=== PATIENT | male | born 1970 ===

== ENCOUNTER 2021-10-15 09:11 | Emergency (ER) | payer SELFPAY ==
[2021-10-15] MEDS ORDERED: ETOMIDATE 20 MG/10 ML INJ IV ONE (09:16)
[2021-10-15] MEDS ORDERED: SUCCINYLCHOLINE CHLORIDE 200 MG/10 ML INJ MDV ONE (09:17)
[2021-10-15] MEDS ORDERED: MIDAZOLAM IV ONE (09:21)
[2021-10-15] MEDS ORDERED: SODIUM CHLORIDE IV ONE (09:21)
[2021-10-15] MEDS ORDERED: LORazepam 2 MG/ML VIAL ONE ×2 (09:21→09:22)
--- NOTE | 2021-10-15 10:13 | Emergency Department Report ---
HPI - General Time Seen by Provider: 10/15/21 10:04 - [facility] HPI: Room 20 Patient is a 51-year-old male presenting with a chief complaint of chest pain. Per EMS the patient awakened this morning with substernal chest heaviness and shortness of breath. Patient became diaphoretic and EMS was called. Prehospital EKG concerning for STEMI was sent to the ED by EMS as a code STEMI was activated. This EKG was sent to the senior recruitment consultant Dr Felton prior to the patient's arrival. Colon Therapist requested a repeat EKG upon patient's arrival. The patient presented in extremis with chest pain and diaphoresis and would not allow repeat EKG to be performed immediately. Patient was beginning to decompensate subsequently the patient was intubated by myself using RSI. The patient arrested shortly after intubation and ACLS protocols were initiated. Colon Therapist was updated on the patient's condition. There was brief ROSC and the senior recruitment consultant was notified. Colon Therapist requested a chest x-ray or CT scan prior to going to Art Coordinator to rule out other causes for patient's presentation, however the patient soon arrested again. ACLS protocols were continued. Colon Therapist arrives at bedside during compressions and performed a bedside ultrasound which showed asystole. ACLS protocols were continued however there was no return of spontaneous circulation ED Past Medical Hx - Past Medical History Hx Asthma: Yes - Surgical History Past Surgical History?: No - Family History Family history: no significant - Social History Smoking Status: Unknown if ever smoked ED Review of Systems ROS: Stated complaint: CHEST PAIN Other details as noted in HPI Constitutional: diaphoresis Respiratory: shortness of breath Cardiovascular: chest pain Physical Exam - Physical Exam Physical Exam: GENERAL: The patient is well-developed well-nourished male appearing diaphoretic and anxious complaint of chest. [] HEENT: Normocephalic. Atraumatic. Patient has moist mucous membranes. NECK: Supple. Trachea midline CHEST/LUNGS: Clear to auscultation. There is increased work of breathing HEART/CARDIOVASCULAR: Regular. There is no tachycardia. There is no gallop rub or murmur. ABDOMEN: Abdomen is soft, nontender. Patient has normal bowel sounds. There is no abdominal distention. SKIN: There is no rash. There is no edema. There is diaphoresis. NEURO: The patient is awake, alert, and oriented. The patient is anxious. GCS 15. The patient has normal speech MUSCULOSKELETAL: There is no evidence of acute injury. ED Course - Consultations Consultation #1: 10/15/21 09:04 Prehospital EKG sent to and discussed with senior recruitment consultant Dr. Felton- states appea rs to be a left bundle and to repeat EKG upon patient's arrival 09:10 Text message sent to senior recruitment consultant notifying him that the patient has arrived and is presenting as a STEMI with diaphoresis 09:23 Colon Therapist was called and notified that the patient has arrested and we are actively performing CPR 09:29 Colon Therapist informed that we have achieved ROSC. Colon Therapist requests a CT of the chest or chest x-ray to rule out other causes of patient's presentation. I informed her senior recruitment consultant I do not believe the patient will make it to CT scan without arresting again but we can try to perform a quick chest x-ray ~09:[address] Felton at bedside during cardiac arrest. Performed a bedside ultrasound which shows asystole - Intubation Sedative: Etomidate Mg Given: 20 Paralytic: Succinylcholine Mg Given: 100 Laryngoscope: fiberoptic video scope Size: 3 Assist Device Used: fiberoptic device ET Tube Size: 8 Tube Secured Depth (cm): 24 Tube Secured Location: lips Tube Placement Confirmation: visualized tube passing t, equal breath sounds bilat, no breath sounds over epi, confirmation by capnometr Patient Tolerated Procedure: well, no complications Intubation Complications: none ED Medical Decision Making - EKG Data Interpretation: other (Prehospital EKG shows sinus tach with wide complex) - Differential Diagnosis STEMI Critical care attestation.: If time is entered above; I have spent that time in minutes in the direct care of this critically ill patient, excluding procedure time. ED Disposition Clinical Impression: Cardiac arrest Disposition: 20 Is pt being admited?: No Does the pt Need Aspirin: No Condition: Poor Time of Disposition: 09:53 (Patient )
[2021-10-15] MEDS ORDERED: DOPamine DRIP 800 MG/D5W 250ML PreMix IV ONE (10:55)
[2021-10-15] MEDS ORDERED: EPINEPHrine 1 MG/10 ML SYRINGE ONE (10:55)
[2021-10-15] MEDS ORDERED: ATROPINE 0.1% (1 MG/10 ML) CARDIAC SYRINGE ONE (10:55)
[2021-10-15] MEDS ORDERED: SODIUM BICARB 8.4% 50 MEQ/50 ML SYRINGE IV ONE (10:55)
[2021-10-15] MEDS ORDERED: ONDANSETRON 4 MG/2 ML INJ ONE (11:59)
== END 2021-10-15 12:04 ==
LOC: ED 09:11
DX: I46.9 Cardiac arrest, cause unspecified (principal); J45.909 Unspecified asthma, uncomplicated
CPT/HCPCS: 31500; 92950; 99285; J0171; J0330; J0461; J1265; J2060; J2405; J3490; J2250